=== PATIENT | female | born 1975 | race Caucasian/White ===

== ENCOUNTER 2018-10-04 09:12 | Emergency (ER) | payer OTHER ==
[~2018-10-04] VITALS: Ht 154.9 cm; Wt 74.0 kg
[~2018-10-04 09:12] MED LIST: GEMF600T PO; IBUP-1542 PO
[2018-10-04 09:15] VITALS: BP 120/65; PULSE 84; RESP 73; Ht 154.9 cm; Wt 74.0 kg
[2018-10-04] MEDS ORDERED: KETOROLAC 60 MG INJ IM STA (10:21)
[2018-10-04] MEDS ORDERED: IBUP-1542 PO (10:23)
[2018-10-04] MEDS ORDERED: CYCL10TA7 PO (10:23)
[2018-10-04] MEDS ORDERED: TRAM50TA2 PO (10:23)
--- NOTE | 2018-10-04 10:27 | ERD ---
ER Documentation Chief Complaint Chief Complaint pt bib family with c/o right leg pain radiating all the way from hip area HPI 43-year-old female presents with low back pain rating to the right buttock and leg. She has some numbness but no weakness. Denies fevers, dysuria, hematuria, fevers, chest pain, shortness of breath. She denies previous history of back problems. Pain started after heavy lifting approximately 1 week ago. Pain desc ribed as 9 out of 10. Worse with movement, decreased with rest. Pain is sharp and radiates to the right buttock and leg. ROS All systems reviewed and are negative except as per history of present illness. Medications Home Meds Active Scripts Cyclobenzaprine Hcl* (Cyclobenzaprine Hcl*) 10 Mg Tablet, 10 MG PO TID, #20 TAB Prov:JAVON ALFONSO MD 10/04/18 Ibuprofen* (Motrin*) 600 Mg Tab, 600 MG PO Q6, #30 TAB Prov:JAVON ALFONSO MD 10/04/18 Tramadol HCl (Tramadol HCl) 50 Mg Tablet, 50 MG PO Q4 PRN for PAIN, #20 TAB Prov:JAVON ALFONSO MD 10/04/18 Ibuprofen* (Motrin*) 600 Mg Tab, 600 MG PO Q6H PRN for PAIN AND OR ELEVATED TEMP, #30 TAB Prov:PATRICIA TONY MD 05/23/16 Ibuprofen* (Motrin*) 600 Mg Tab, 600 MG PO Q6H PRN for PAIN AND OR ELEVATED TEMP, #30 TAB Prov:PATRICIA TONY MD 04/11/16 Reported Medications Gemfibrozil* (Lopid*) 600 Mg Tablet, 600 MG PO BID, TAB 04/11/16 Allergies Allergies: Coded Allergies: No Known Drug Allergy (Verified Allergy, Unknown, 12/06/09) PMhx/Soc History of Surgery: Yes (csection) Anesthesia Reaction: No Hx Neurological Disorder: No Hx Respiratory Disorders: No Hx Cardiac Disorders: No Hx Psychiatric Problems: No Hx Miscellaneous Medical Probl: No Hx Alcohol Use: No Hx Substance Use: No Hx Tobacco Use: No FmHx Family History: No diabetes, No coronary disease, No other Physical Exam Vitals Vital Signs Date Temp Pulse Resp B/P (MAP) Pulse Ox O2 O2 Flow FiO2 Time Delivery Rate 10/04/18 97.9 84 73 120/65 85 09:15 (83) Physical Exam Const: No acute distress Head: Atraumatic Eyes: Normal Conjunctiva ENT: Normal External Ears, Nose and Mouth. Neck: Full range of motion. No meningismus. Resp: Clear to auscultation bilaterally Cardio: Regular rate and rhythm, no murmurs Abd: Soft, non tender, non distended. Normal bowel sounds Skin: No petechiae or rashes Back: No midline or flank tenderness Ext: No cyanosis, or edema Neur: Awake and alert Psych: Normal Mood and Affect Results 24 hrs Current Medications Medications Dose Sig/Aj Start Time Status Last (Trade) Ordered Route PRN Stop Time Admin Dose Reason Admin Ketorolac 60 mg ONCE STAT 10/04/18 DC Tromethamine IM 10:21 (Toradol) 10/04/18 10:22 16 mg ONCE ONCE 10/04/18 UNV Dexamethasone PO 10:30 (Decadron) 10/04/18 10:31 Departure Diagnosis: Primary Impression: Sciatica of right side Additional Impression: Pain of right leg Condition: Stable Patient Instructions: Back Exercises, Lumbar, Back Pain W/ Sciatica Additional Instructions: See primary doctor for follow-up. May benefit from physical therapy return for fevers, new or worsening symptoms. Perform exercises as directed. JAVON ALFONSO MD Oct 04, 2018 10:27
[2018-10-04] MEDS ORDERED: DEXAMETHASONE 4 MG TAB PO ONE (11:00)
== END 2018-10-04 11:22 | disposition home or self-care (01) ==
LOC: FTE 09:12
DX: M54.31 Sciatica, right side (principal)
CPT/HCPCS: 96372; J1885; Z7502; Z7610